=== PATIENT | female | born 1970 | race Caucasian/White ===

== ENCOUNTER 2016-12-20 01:23 | Emergency (ER) | payer OTHER ==
--- NOTE | ~2016-12-20 | CR63 ---
[facility] A Service of [facility] RADIOLOGY TEXT RESULTS PATIENT: TEJAL PUTNAM LOCATION: [facility] : 70 UNIT #: [id number] AGE: [address]: AMRCELLUS WOODS SEX: F ORDER DR: [id number] [facility] [address] [place], [place] [address] [id number] E MR#: [id number] Acc #: [id number] NAME: TEJAL PUTNAM. : 1970 SEX: F STUDY DATE/TIME: 12/20/2016 5:09 UNIT: [facility] ROOM: STUDY DESCRIPTION: CR Chest 2 View Attending Physician: Marcellus Woods Aprn Ordering Physician: Marcellus Woods Aprn Primary Care Physician: No Primary Care Physician MEDICAL IMAGING REPORT This report is preliminary unless electronic signature is present EXAM Two-view chest INDICATIONS Cough and shortness of air for the past week. PROCEDURE Frontal and lateral views of the chest. COMPARISON None FINDINGS Heart size normal. No dense consolidation. No pleural fluid or pneumothorax. IMPRESSION No active process. Dictated by... Bill Lorenz M.D. THIS IS AN ELECTRONICALLY VERIFIED REPORT Bill Lorenz M.D. at 12/20/2016 9:54 PM Kyleigh TD: 12/20/2016 12:41 JOB #: [id number] MEDICAL IMAGING REPORT Page 1 of 1 COPY
[~2016-12-20 01:23] MED LIST: AMITRYPTYLINE PO; AMOXIL500 MG PO; PROZAC PO; VICODIN 5/500 T1 TAB PO
== END 2016-12-20 05:38 | disposition home or self-care (01) ==
LOC: CED 01:23
DX: J06.9 Acute upper respiratory infection, unspecified (principal); I10 Essential (primary) hypertension
CPT/HCPCS: 71020; 94640; 99283